=== PATIENT | female | born 1980 | race Caucasian/White ===

== ENCOUNTER → 2020-08-02 08:41 | Outpatient (CLI) | payer OTHER, SELFPAY ==
[2020-08-02 17:20] LABS: SARS-CoV-2 RNA PCR Negative
== END ==
PROVIDERS: Visit Provider Urology
DX: Z01.812 Encounter for preprocedural laboratory examination (principal); Z20.822 Contact with and (suspected) exposure to COVID-19
CPT/HCPCS: C9803; U0003; U0005

== ENCOUNTER 2020-08-03 01:00 | Day surgery (SDC) | payer OTHER, SELFPAY ==
[2020-08-02 11:23] VITALS: BMI 23.3
--- NOTE | 2020-08-02 13:37 | WPDANESEPPF ---
Anes - Initial Pre Proc Eval Procedure: Operation Date: 08/03/20 09:00 Proposed Procedures p Cystoscopy, Left Ureteroscopy, Left Retrograde Pyelogram, Left Stone Extraction, Possible Left Stent Placement - Faisal Hogue MD s Possible Holmium Laser Procedure - Faisal Hogue MD Date/Time: 08/02/20 13:37 Surgeon: Faisal Hogue MD Pre Op Diagnosis: left ureteral stone Patient Data Age: 39 Gender: F Height: 1.68 m Weight: 65.77 kg Allergies Allergy/AdvReac Type Severity Reaction Status Date / Time tramadol Allergy Severe TONGUE Verified 08/03/20 07:18 SWELLING Home Medications Medication Instructions Recorded Confirmed Type Lactobacillus acidophilus 10,000 mmu cells PO DAILY 08/02/20 08/03/20 History [Probiotic] cetirizine [Zyrtec] 10 mg PO DAILY 08/02/20 08/03/20 History dextroamphetamine-amphetamine 30 mg PO DAILY 08/02/20 08/03/20 History [Adderall XR] famotidine [Pepcid] 20 mg PO PRN PRN 08/02/20 08/03/20 History [id number] fum-folic ac-om3 1 pkg PO DAILY 08/02/20 08/03/20 History [One Daily ] Patient hx anesthesia problems: none Family hx anesthesia problems: none PMFSH Past Medical History Medical History (Updated 08/02/20 @ 13:37 by Kevin Ann MD) Chronic GERD Social History Social History Smoking status: Never smoker Alcohol intake: current Drinks per week: 2 Living arrangements: with family Spiritual care concerns: No Anes - Eval Final PreProcedure Day of Procedure 08/02/20 13:37 Patient weight: normal Heart: regular rate and rhythm Lungs: clear to auscultation and normal air movement Airway: Mallampati scale class II Neurological: alert and oriented Last oral intake: >/= 8 hours ASA classification: I Emergent: no Anesthetic plan: proceed Anesthesia type and monitoring: general LMA Informed Consent: The patient's anesthetic plan and its attendant risks and benefits were discussed with the patient/family/POA. Questions were solicited and answers provided to the satisfaction of the patient/family/POA.
[2020-08-03] VITALS (7 sets, daily range): BP systolic 93–114; BP diastolic 57–78; PULSE 73–83; RESP 11–20; TEMP 36.2–36.6; O2SAT 98–100
--- NOTE | ~2020-08-03 | XR_ITS ---
EXAMINATION: XR retrograde pyelo w/stent LT EXAM DATE: 08/03/2020 09:39 INDICATION: Left-sided retrograde, stent placement. TECHNIQUE: Fluoroscopy used during XR retrograde pyelo w/stent LT performed by Dr. Faisal mcdonald MD. The DAP for this procedure was 68 radcm2. FINDINGS: Left ureter was cannulated, injected. Mild left caliectasis. A double-J ureteral stent was positioned. Correlate with procedure note. IMPRESSION: Fluoroscopy used during XR retrograde pyelo w/stent LT. Reviewed, dictated and finalized at location B. [employer]ER
[2020-08-03] MEDS: LACTATED RINGERS 1,000 ML 30 ML IV CONT ×2 (07:46→09:42)
--- NOTE | 2020-08-03 08:41 | WPDHPUPDATE1 ---
History and Physical Update Update Date/Time: 08/03/20 08:41 History and Physical has been reviewed, including an updated exam of the patient. There are NO changes in the patient's condition. Risks, benefits, and alternatives have been discussed and questions answered. Patient agrees to proceed with procedure. Proceed with cysto, left retrograde, left ureteroscopy with stone extraction , stent placement possible laser.
[2020-08-03] MEDS: SCOPOLAMINE 1.5 MG PATCH TRANSDERM (09:02)
[2020-08-03] MEDS: ceFAZolin 2 GM/D5W 50 ML 2 GM/50 ML BAG IVPB (09:04)
[2020-08-03] MEDS: LIDOCAINE HCL 2% GEL UROJET 10 ML PKG MUCOUS MEM (09:17)
--- NOTE | 2020-08-03 09:20 | SUR.OPER ---
Surgeon not announced
--- NOTE | 2020-08-03 09:41 | P.OP_ITS ---
Procedure Note - Detailed Date of procedure: 08/03/20 Pre-op diagnosis: left ureteral stone Post-op diagnosis: same Procedure performed: Cystoscopy, left retrograde pyelogram, left ureteroscopy with stone extraction, left ureteral stent placement 4.8 Portuguese contour Description of procedure: Patient is taken the operative suite correctly identified. Once anesthesia was obtained she was placed in dorsal lithotomy position and prepped and draped usual sterile fashion. Nineteen Portuguese scope was inserted into bladder. There are no tumors noted. Both ureteral orifices normal anatomic position. Left orifice was cannulated with a guidewire. We dilated the ureter with an 8/10 dilator. Rigid ureteral scope was then inserted. The stone was visualized. Using an escape basket we were able to retrieve it in its entirety. Pyelogram was then performed to confirm placement of the stent. A 4.8 Portuguese contour stent was then placed with the proximal end coiled in the renal pelvis and the distal bladder. Bladder was drained. 2% viscous lidocaine was inserted urethra. Patient was taken recovery room stable condition. She will follow up in 7-10 days with a stent removal. Anesthesia: GLMA Surgeon: Faisal Hogue MD Drains: Yes Packing: No Pathology: yes Complications: No immediate complications Condition: stable Disposition: PACU
== END 2020-08-03 11:06 | disposition home or self-care (01) ==
PROVIDERS: Visit Provider Urology
PROC: (CPT 52352; principal; 2020-08-03 09:00)
DX: N20.1 Calculus of ureter (principal); K21.9 Gastro-esophageal reflux disease without esophagitis
CPT/HCPCS: 52332; 52352; 74420; 82365; 88300; A9270; C1769; C2617; C9803; J0690; J1100; J2250; J2405; J2704; J3010; J7120; Q9966; U0003; U0005